=== PATIENT | female | born 1965 | race Caucasian/White ===

== ENCOUNTER 2017-08-03 06:45 | Outpatient (CLI) | payer OTHER ==
[~2017-08-03 06:45] MED LIST: ACETAMINOOPHEN-1 TAB PO; AMARYL PO; DICLOFENAC POTA50 MG PO; ENALAPRIL MALEA10 MG NGT; INVOKANA300 MG PO; PNEU16DI2; TYLENOL 8 HOUR650 MG PO; ZITHROMAX1 G/PKT PO
== END 2017-08-03 06:54 | disposition home or self-care (01) ==
LOC: LAB 06:45
DX: I10 Essential (primary) hypertension (principal); E11.65 Type 2 diabetes mellitus with hyperglycemia

== ENCOUNTER 2017-10-01 10:15 | Emergency (ER) | payer OTHER ==
[~2017-10-01] VITALS: Ht 167.6 cm; Wt 88.0 kg
[2017-10-01] MEDS ORDERED: KOMBIGLYZE XR1 EAC2 PO (10:35)
== END 2017-10-01 15:31 | disposition home or self-care (01) ==
LOC: ER 10:15
DX: J06.9 Acute upper respiratory infection, unspecified (principal)

== ENCOUNTER → 2018-03-01 | Outpatient (CLI) | payer OTHER ==
[~2018-03-01] MED LIST changes: +KOMBIGLYZE XR1 EAC2 PO
== END | disposition home or self-care (01) ==
LOC: LAB 07:24
DX: E78.2 Mixed hyperlipidemia (principal); I10 Essential (primary) hypertension; E11.65 Type 2 diabetes mellitus with hyperglycemia

== ENCOUNTER 2018-05-03 07:13 | Outpatient (CLI) | payer OTHER | END 2018-05-03 07:28 | disposition home or self-care (01) | LOC: LAB 07:13 → RAD 07:13 | DX: D68.8 Other specified coagulation defects (principal); I10 Essential (primary) hypertension; N39.0 Urinary tract infection, site not specified; E11.9 Type 2 diabetes mellitus without complications; Z01.818 Encounter for other preprocedural examination ==

== ENCOUNTER 2018-07-05 06:57 | Outpatient (CLI) | payer OTHER | END 2018-07-05 07:14 | disposition home or self-care (01) | LOC: LAB 06:57 | DX: D68.8 Other specified coagulation defects (principal); I10 Essential (primary) hypertension; N39.0 Urinary tract infection, site not specified ==

== ENCOUNTER → 2018-10-19 | Emergency (ER) | payer OTHER | END | disposition left against medical advice (07) | LOC: ER 22:43 | DX: Z53.20 Procedure and treatment not carried out because of patient's decision for unspecified reasons (principal) ==

== ENCOUNTER 2018-11-03 06:47 | Outpatient (CLI) | payer OTHER | END 2018-11-03 07:41 | disposition home or self-care (01) | LOC: LAB 06:47 | DX: E78.2 Mixed hyperlipidemia (principal); E11.65 Type 2 diabetes mellitus with hyperglycemia; I10 Essential (primary) hypertension ==

== ENCOUNTER 2018-12-17 05:57 | Emergency (ER) | payer OTHER ==
[~2018-12-17] VITALS: Ht 152.4 cm; Wt 86.2 kg
[2018-12-17] MEDS ORDERED: TOPROL XL25 MG (06:56)
[2018-12-17] MEDS ORDERED: CANDESARTAN-HC1 EACH (06:56)
== END 2018-12-17 10:16 | disposition home or self-care (01) ==
LOC: ER 05:57
DX: K58.9 Irritable bowel syndrome, unspecified (principal); R10.11 Right upper quadrant pain

== ENCOUNTER 2018-12-20 12:52 | Outpatient (CLI) | payer OTHER ==
[~2018-12-20 12:52] MED LIST changes: +CANDESARTAN-HC1 EACH; +TOPROL XL25 MG
== END 2018-12-20 13:00 | disposition home or self-care (01) ==
LOC: LAB 12:52
DX: R10.11 Right upper quadrant pain (principal); R10.31 Right lower quadrant pain

== ENCOUNTER 2018-12-22 13:10 | Outpatient (CLI) | payer OTHER | END 2018-12-22 15:14 | disposition home or self-care (01) | LOC: TOM 13:10 | DX: R10.31 Right lower quadrant pain (principal); R10.11 Right upper quadrant pain ==

== ENCOUNTER → 2018-12-25 07:19 | Outpatient (CLI) | payer OTHER | END | disposition home or self-care (01) | LOC: LAB 07:19 | DX: E10.9 Type 1 diabetes mellitus without complications (principal) ==

== ENCOUNTER 2019-01-26 07:42 | Outpatient (CLI) | payer OTHER | END 2019-01-26 07:52 | disposition home or self-care (01) | LOC: NUCLEAR 07:42 | DX: R07.89 Other chest pain (principal) | CPT/HCPCS: 78452; 93017; A9500 ==

== ENCOUNTER 2019-03-14 06:16 | Outpatient (CLI) | payer OTHER | END 2019-03-14 15:00 | disposition home or self-care (01) | LOC: LAB 06:16 | DX: E78.2 Mixed hyperlipidemia (principal); E11.65 Type 2 diabetes mellitus with hyperglycemia ==

== ENCOUNTER 2020-01-28 06:16 | Outpatient (CLI) | payer OTHER | END 2020-01-28 06:29 | disposition home or self-care (01) | LOC: LAB 06:16 | PROVIDERS: ATTEND Internal Medicine Endocrinology, Diabetes & Metabolism | DX: I10 Essential (primary) hypertension (principal); E11.65 Type 2 diabetes mellitus with hyperglycemia; E78.2 Mixed hyperlipidemia ==

== ENCOUNTER 2020-02-26 13:11 | Outpatient (CLI) | payer OTHER | END 2020-02-26 13:36 | disposition home or self-care (01) | LOC: NUCLEAR 13:11 | PROVIDERS: ATTEND Obstetrics & Gynecology | DX: M81.0 Age-related osteoporosis without current pathological fracture (principal); M85.80 Other specified disorders of bone density and structure, unspecified site; Z13.820 Encounter for screening for osteoporosis ==

== ENCOUNTER 2020-03-07 14:22 | Outpatient (CLI) | payer OTHER | END 2020-03-07 14:36 | disposition home or self-care (01) | LOC: LAB 14:22 | PROVIDERS: ATTEND Internal Medicine Endocrinology, Diabetes & Metabolism | DX: E11.29 Type 2 diabetes mellitus with other diabetic kidney complication (principal) ==

== ENCOUNTER 2020-05-16 08:01 | Outpatient (CLI) | payer OTHER | END 2020-05-16 15:00 | disposition home or self-care (01) | LOC: LAB 08:01 | PROVIDERS: ATTEND Internal Medicine Nephrology | DX: E11.21 Type 2 diabetes mellitus with diabetic nephropathy (principal); R80.8 Other proteinuria; I10 Essential (primary) hypertension ==

== ENCOUNTER 2020-09-09 06:10 | Outpatient (CLI) | payer OTHER | END 2020-09-09 06:41 | disposition home or self-care (01) | LOC: LAB 06:10 | PROVIDERS: ATTEND Internal Medicine Nephrology | DX: N18.2 Chronic kidney disease, stage 2 (mild) (principal); I10 Essential (primary) hypertension; F11.21 Opioid dependence, in remission; R80.8 Other proteinuria ==

== ENCOUNTER 2020-09-09 07:05 | Outpatient (CLI) | payer OTHER | END 2020-09-09 07:18 | disposition home or self-care (01) | LOC: SONOGRAMA 07:05 → MAMO-SONO 07:15 → SONOGRAMA 07:18 | PROVIDERS: ATTEND Internal Medicine Nephrology | DX: N18.2 Chronic kidney disease, stage 2 (mild) (principal); R80.8 Other proteinuria ==

== ENCOUNTER 2021-07-04 07:15 | Outpatient (CLI) | payer OTHER | END 2021-07-04 07:45 | disposition home or self-care (01) | LOC: LAB 07:15 | DX: E11.65 Type 2 diabetes mellitus with hyperglycemia (principal); E24.0 Pituitary-dependent Cushing's disease; I50.84 End stage heart failure ==

== ENCOUNTER 2021-08-07 07:54 | Outpatient (CLI) | payer OTHER | END 2021-08-07 14:55 | disposition home or self-care (01) | LOC: LAB 07:54 | PROVIDERS: ATTEND Internal Medicine Endocrinology, Diabetes & Metabolism | DX: E11.65 Type 2 diabetes mellitus with hyperglycemia (principal); E24.0 Pituitary-dependent Cushing's disease; I50.84 End stage heart failure ==

== ENCOUNTER 2021-08-10 09:21 | Outpatient (CLI) | payer OTHER | END 2021-08-10 09:22 | disposition home or self-care (01) | LOC: LAB 09:21 | PROVIDERS: ATTEND Internal Medicine Endocrinology, Diabetes & Metabolism | DX: D50.0 Iron deficiency anemia secondary to blood loss (chronic) (principal); D63.1 Anemia in chronic kidney disease; D64.89 Other specified anemias; N18.30 Chronic kidney disease, stage 3 unspecified; E11.65 Type 2 diabetes mellitus with hyperglycemia; I50.84 End stage heart failure ==

== ENCOUNTER 2022-12-22 07:54 | Outpatient (CLI) | payer OTHER | END 2022-12-22 07:55 | disposition home or self-care (01) | LOC: LAB 07:54 | PROVIDERS: ATTEND Internal Medicine | DX: E78.2 Mixed hyperlipidemia (principal); E11.9 Type 2 diabetes mellitus without complications; I11.9 Hypertensive heart disease without heart failure; N18.2 Chronic kidney disease, stage 2 (mild); E11.22 Type 2 diabetes mellitus with diabetic chronic kidney disease; R80.9 Proteinuria, unspecified ==

== ENCOUNTER 2023-06-05 12:23 | Emergency (ER) | payer OTHER ==
[~2023-06-05] VITALS: Ht 160 cm; Wt 77.1 kg
[2023-06-05] MEDS ORDERED: VALSARTAN40 MG PO (12:58)
[2023-06-05] MEDS ORDERED: ROSUVASTATIN CA40 MG PO (12:59)
[2023-06-05] MEDS ORDERED: SYNJARDY XR 5-1 EACH PO (12:59)
[2023-06-05 14:13] LABS: PH,URINE 5.5 (5.0-8.0); URINE APPEARANCE Clear; URINE BILIRRUBIN Negative (NEGATIVE); URINE BLOOD NHT; URINE COLOR Yellow; URINE LEUKOCYTE Negative; URINE NITRATE Negative; URINE PROTEIN 30 (NEGATIVE); URINE UROBILINOGEN 0.2 E.U./dl
[2023-06-05 14:17] LABS: URINE BACTERIA 25.1 uL (0.0-1933); URINE EPITHELIAL CELLS 19.7 uL (0.0-38.8); URINE RBC 6.3 uL (0.0-20.8); URINE WBC 8.3 uL (0.0-23.2)
[2023-06-05 14:19] LABS: HEMATOCRIT 31.6 % (36.0-45.00); HEMOGLOBIN 10.3 g/dL (12.0-15.00); MEAN CELL VOLUME 79.4 fL (80.00-100.00); MEAN CORPUSCULAR HEMOGLOBIN 25.8 pg (27.00-32.0); MEAN CORPUSCULAR HGB CONC 32.6 g/dl (32.0-36.0); PLATELET COUNT 364 K/uL (150-450); RED BLOOD COUNT 3.98 M/uL (4.00-6.00); RED CELL DISTRIBUTION WIDTH 16.3 % (11.5-14.5)
[2023-06-05 14:32] LABS: ALBUMIN 2.6 gm/dL (3.4-5.0); BILIRUBIN TOTAL 0.4 mg/dL (0.3-1.2); BILIRUBIN,CONJUGATED 0.15 mg/dL (0.0-0.2); BILIRUBIN,UNCONJUGATED 0.25 mg/dL (0.0-0.6); CALCIUM 8.8 mg/dL (8.5-10.1); CREATININE SERUM 1.28 mg/dL (0.55-1.02); GFR 42.53; POTASSIUM 3.77 mEq/L (3.5-5.1); TOTAL PROTEIN 7.5 gm/dL (6.4-8.2)
[2023-06-05 14:35] LABS: URINE GLUCOSE >=1000 MG/DL (NEGATIVE)
== END 2023-06-05 18:11 | disposition home or self-care (01) ==
LOC: ER 12:23
PROVIDERS: General Practice
DX: A09 Infectious gastroenteritis and colitis, unspecified (principal); Z20.822 Contact with and (suspected) exposure to COVID-19; Z88.8 Allergy status to other drugs, medicaments and biological substances; I10 Essential (primary) hypertension

== ENCOUNTER 2024-02-09 07:55 | Outpatient (CLI) | payer OTHER ==
[~2024-02-09 07:55] MED LIST changes: +ROSUVASTATIN CA40 MG PO; +SYNJARDY XR 5-1 EACH PO; +VALSARTAN40 MG PO
[2024-02-09 08:51] LABS: HEMATOCRIT 36.1 % (36.0-45.00); HEMOGLOBIN 12.1 g/dL (12.0-15.00); MEAN CORPUSCULAR HEMOGLOBIN 28.4 pg (27.00-32.0); MEAN CORPUSCULAR HGB CONC 33.5 g/dl (32.0-36.0); PLATELET COUNT 212 K/uL (150-450); RED BLOOD COUNT 4.25 M/uL (4.00-6.00); RED CELL DISTRIBUTION WIDTH 15.5 % (11.5-14.5)
[2024-02-09 09:49] LABS: ALBUMIN 3.6 gm/dL (3.4-5.0); BILIRUBIN TOTAL 0.46 mg/dL (0.3-1.2); CALCIUM 8.9 mg/dL (8.5-10.1); CHOL HDL RATIO 2.9 (0-5.0); CREATININE SERUM 1.15 mg/dL (0.55-1.02); GFR 48.13; GLOBULINA 3.8 G/DL (2.4-3.5); POTASSIUM 4.46 mEq/L (3.5-5.1); TOTAL PROTEIN 7.4 gm/dL (6.4-8.2); TSH 1.37 uIU/mL (0.358-3.74)
[2024-02-09 10:09] LABS: ob NEGATIVE (NEGATIVE)
== END 2024-02-09 08:07 | disposition home or self-care (01) ==
LOC: LAB 07:55
PROVIDERS: ATTEND Internal Medicine Gastroenterology
DX: R10.9 Unspecified abdominal pain (principal); E03.9 Hypothyroidism, unspecified; E78.5 Hyperlipidemia, unspecified; R19.7 Diarrhea, unspecified; Z12.11 Encounter for screening for malignant neoplasm of colon; R19.5 Other fecal abnormalities

== ENCOUNTER 2024-02-09 09:13 | Outpatient (CLI) | payer OTHER | END 2024-02-09 09:27 | disposition home or self-care (01) | LOC: SONOGRAMA 09:13 | PROVIDERS: ATTEND Internal Medicine Gastroenterology | DX: R10.9 Unspecified abdominal pain (principal) ==

== ENCOUNTER 2024-07-16 08:32 | Outpatient (CLI) | payer OTHER | END 2024-07-16 09:00 | disposition home or self-care (01) | LOC: NUCLEAR 08:32 | PROVIDERS: ATTEND Internal Medicine | DX: G45.9 Transient cerebral ischemic attack, unspecified (principal); R55 Syncope and collapse ==